=== PATIENT | male | born 2000 | race Asian ===

== ENCOUNTER 2023-03-12 10:23 | Outpatient (AMB) | payer OTHER, SELFPAY ==
[2023-03-12 10:29] VITALS: BP 124/84; PULSE 86; O2SAT 97; BMI 37.0
--- NOTE | 2023-03-12 10:29 | MHC.PC.OV ---
Vital Signs 03/12/23 10:29 Height 5 ft 9.5 in Weight 254 lb 8 oz BMI 37.0 BP 124/84 Blood Pressure Location Lt brachial Position Sitting Pulse 86 Pulse Source Pulse Oximeter Pulse Oximetry (%) 97 Oxygen Delivery Method Room Air Intake Visit Reasons: Physical exam Allergies No Known Allergies [No Known Allergies*] Allergy (Verified 07/26/21 13:22) Medication List - Last Reconciled 03/12/23 by Angeles Wei MD No Known Home Meds Tobacco use date assessed: 07/26/21 HPI Physical exam HPI Details Patient is 22-year-old gentleman came in today for physical examination Patient says that sometimes at night he wakes up coughing feel as if has some chest congestion But he is fine all day Patient says that the symptoms are improving he does not want any medication There is no fever chills chest pain no shortness a breath Patient is obese with BMI of 37.0 I would recommend to lose weight Reflux is a possibility, I have given him name of PriSoPostsec which is [id number] patient may take that as a trial Lab order placed to be done fasting He offer no other complaints today Flu vaccine declined [facility] Social History Housing: House Patient Tobacco Use Status: Never used Tobacco e-Cigarette/Vaping Use: Never Used service: No Current occupational status: unemployed Cognitive needs: No Hearing needs: No Vision needs: Yes Questionnaire PHQ-9 Over the last 2 weeks, how often have you been bothered by any of the following problems? 1. Little interest or pleasure in doing things: several days 2. Feeling down, depressed, or hopeless: several days 3. Trouble falling or staying asleep, or sleeping too much: not at all 4. Feeling tired or having little energy: several days 5. Poor appetite or overeating: not at all 6. Feeling bad about yourself - or that you are a failure or have let yourself or your family down: not at all 7. Trouble concentrating on things, such as reading the newspaper or watching television: several days 8. Moving or speaking so slowly that other people could have noticed. Or the opposite - being so fidgety or restless that you have been moving around a lot more than usual: not at all 9. Thoughts that you would be better off or of hurting yourself in some way: not at all Total score: 4 Depression Screening Interpretation: Negative Depression Screening Done: Yes 73512 - PHQ-9 Billing: Yes Source: Developed by Drs. Eduar Castillo, Marcelina Forbes, Piotr Waite and colleagues, with an educational tahir from [employer]. Thrive Questionnaire Date Thrive assessed: 03/12/23 I am a: Patient What is your living situation today?: I have a steady place to live Within the past 12 months, did the food you bought not last and you didn't have the money to get more?: Never true Within the past 12 months, did you worry whether your food would run out before you got money to buy more?: Never true Do you have trouble getting transportation to medical appointments?: No Do you have trouble paying your heating and electricity bill?: No Do you have trouble taking care of your child, family member or friend?: No Do you have trouble with day-to-day activities such as bathing, preparing meals, shopping, managing finances, etc.?: No Are you currently unemployed and looking for a job?: Yes Are you interested in more education?: Yes Please select the resources that you would like help with: None Currently or been in a relationship where the following occur: no concerns reported THRIVE Score: 0 AUDIT C Alcohol Use Questionnaire (AUDIT-C) 1. How often do you have a drink containing alcohol?: Never 3. How often do you have six or more drinks on one occasion?: Never Total Score: 0 Score Reviewed/Action Taken: Yes CORY-7 AMB Questionnaire CORY-7 Date CORY - 7 assessed: 03/12/23 Feeling nervous, anxious, or on edge: 2 = More than half the days Not being able to stop or control worryin = More than half the days Worrying too much about different things: 3 = Nearly every day Trouble relaxin = Several days Being so restless that it is hard to sit still: 2 = More than half the days Becoming easily annoyed or irritable: 2 = More than half the days Feeling afraid as if something awful might happen: 1 = Several days Total CORY-7 score (0-4 normal; 5-9 mild; 10-14 moderate; 15-21 severe): 13 Source: Developed by Drs. Eduar Castillo, Marcelina Forbes, Piotr Waite and colleagues, with an educational tahir from [employer]. CORY-7 Assessment Billing CORY-7 Assessment Tool: CORY-7 Assessment 61327 Review of Systems Const Denies chills, Denies fever(s) and Denies headache(s) Eyes Denies blurry vision ENT Denies headache(s), Denies nasal discharge, Denies nasal obstruction, Denies odynophagia and Denies sinus pain Card Denies chest pain at rest and Denies chest pain with activity Resp Denies hemoptysis GI Denies diarrhea, Denies odynophagia, Denies vomiting and Denies hematemesis Reports as per HPI Musc Denies abnormal gait Skin/Breast Reports as per HPI Neuro Denies Neuro-related abnormal movements, Denies Abnormal speech present, Denies abnormal gait, Denies headache(s) and Denies Sensory deficit (Neuro) Psych Denies mood swings and Denies paranoia Endo Reports as per HPI Quan/Lymph Reports as per HPI Aller/Immun Reports as per HPI Physical exam (Primary Care) Vital Signs: Last Vital Signs Pulse 86 03/12/23 10:29 BP 124/84 03/12/23 10:29 Pulse Ox 97 03/12/23 10:29 Oxygen Delivery Method Room Air 03/12/23 10:29 BMI result Body Mass Index 37.0 Tobacco/Smoking Status: Tobacco use Status Tobacco use date assessed 07/26/21 03/12/23 10:30 Patient Tobacco Use Status Never used Tobacco 03/12/23 10:30 e-Cigarette/Vaping Use Never Used 03/12/23 10:30 PHQ-9: PHQ-9 Score PHQ-9: Total score 4 03/12/23 10:55 Depression Screening Interpretation: Negative Thrive Assessment: Date of Thrive Assessment Date Thrive assessed 03/12/23 03/12/23 10:55 Currently or been in a relationship where the following occur: no concerns reported Const General: cooperative, comfortable and no acute distress Orientation/consciousness: patient oriented x3 HENMT Head: Yes normocephalic and Yes atraumatic Eyes General: appearance normal, both eyes and all related structures Pupils: Equal, round and reactive pupils present EOM: EOMs intact bilaterally Neck Neck: Yes supple and No lymphadenopathy Thyroid: Thyroid normal Lymphatic: no lymphadenopathy noted Resp Effort & Inspection: normal respiratory effort and able to speak in complete sentences Auscultation: clear to auscultation bilaterally Cardio Heart sounds: S1 normal heart sound present and S2 normal heart sound present GI Palpation (GI): Soft to palpation and nontender Auscultation: normal bowel sounds General: Yes no CVA tenderness Back/Spine/Pelvis Back: no CVA tenderness Skin General skin exam: elasticity normal and turgor normal Neuro General: patient oriented x3 and gait normal Cranial nerves: Yes Equal, round and reactive pupils present Speech: No Abnormal speech present Sensory Exam: No Sensory deficit (Neuro) Coordination: tandem gait normal and Romberg test negative Extrem General: Yes normal exam except as noted and No edema Assessment and Plan Assessment & Plan (1) Encounter for general adult medical examination with abnormal findings: Code(s): Z00.01 - Encounter for general adult medical examination with abnormal findings (2) Obesity due to excess calories: Code(s): E66.09 - Other obesity due to excess calories Qualifiers: Body mass index: BMI 37.0-37.9 Obesity classification: adult class 2 (BMI 35 - 39.9) Serious obesity comorbidity presence: without serious comorbidity (3) OCD (obsessive compulsive disorder): Code(s): F42.9 - Obsessive-compulsive disorder, unspecified Qualifiers: Obsessive-compulsive disorder type: unspecified (4) Xerosis of skin: Code(s): L85.3 - Xerosis cutis Plan Patient is 22-year-old gentleman came in today for physical examination Patient says that sometimes at night he wakes up coughing feel as if has some chest congestion But he is fine all day Patient says that the symptoms are improving he does not want any medication There is no fever chills chest pain no shortness a breath Patient is obese with BMI of 37.0 I would recommend to lose weight Reflux is a possibility, I have given him name of Prilosec which is [id number] patient may take that as a trial Lab order placed to be done fasting He offer no other complaints today Flu vaccine declined Patient has a very dry skin on his hands, we talked about skin care today It is okay to use Rosie well after washing hands, patient does have OCD Orders: Orders Complete Blood Count Auto Diff Today E66.09 - Other obesity due to excess calories, F42.9 - Obsessive-compulsive disorder, unspecified, L70.9 - Acne, unspecified, Z00.01 - Encounter for general adult medical examination with abnormal findings TSH reflex Free T4 Today E66.09 - Other obesity due to excess calories, F42.9 - Obsessive-compulsive disorder, unspecified, L70.9 - Acne, unspecified, Z00.01 - Encounter for general adult medical examination with abnormal findings Comprehensive [place]. Panel Fast Today E66.09 - Other obesity due to excess calories, F42.9 - Obsessive-compulsive disorder, unspecified, L70.9 - Acne, unspecified, Z00.01 - Encounter for general adult medical examination with abnormal findings Lipid Panel Today E66.09 - Other obesity due to excess calories, F42.9 - Obsessive-compulsive disorder, unspecified, L70.9 - Acne, unspecified, Z00.01 - Encounter for general adult medical examination with abnormal findings Coding Level of Care Code Est Pt Prev Care 18-39y(31258) Diagnoses Encounter for general adult medical examination with abnormal findings Z00.01 Obesity due to excess calories E66.09 Body mass index: BMI 37.0-37.9 Obesity classification: adult class 2 (BMI 35 - 39.9) Serious obesity comorbidity presence: without serious comorbidity OCD (obsessive compulsive disorder) F42.9 Obsessive-compulsive disorder type: unspecified Xerosis of skin L85.3 Additional Codes CORY-7 Assessment Billing - CORY-7 Assessment Tool: CORY-7 Assessment [id number] ([id number])
== END 2023-03-12 10:55 | disposition home or self-care (01) ==
PROVIDERS: PCP Internal Medicine; Visit Provider Internal Medicine
DX: Z00.00 Encounter for general adult medical examination without abnormal findings (principal); E66.09 Other obesity due to excess calories; Z68.37 Body mass index [BMI] 37.0-37.9, adult; F42.9 Obsessive-compulsive disorder, unspecified; L85.3 Xerosis cutis; L70.9 Acne, unspecified
CPT/HCPCS: 99395

== ENCOUNTER 2023-03-12 10:56 | Outpatient (REF) | payer OTHER, SELFPAY ==
[2023-03-12 13:29] LABS: MANUAL DIFF FLAG NO
[2023-03-12 13:34] LABS: Basophils Percent Auto 0.5 % (0-2); Eosinophils Absolute Auto 0.1 X10*3/uL (0.0-0.4); Hematocrit 50.1 % (42.0-52.0); Hemoglobin 16.8 g/dl (14.0-18.0); Imm Gran Abs Auto 0.01 X10*3/uL (0.00-0.03); Imm Gran Pct Auto 0.2 % (0.0-0.4); Lymphocytes Absolute Auto 2.3 X10*3/uL (1.2-4.9); Lymphocytes Percent Auto 35.8 % (20-40); Mean Corpuscular HGB Conc 33.5 g/dl (31.0-36.0); Mean Corpuscular Hemoglobin 29.4 pg (27.0-33.0); Mean Corpuscular Volume 87.6 fL (80.0-98.0); Mean Platelet Volume 10.8 fL (9.4-12.4); Monocytes Absolute Auto 0.5 X10*3/uL (0.1-1.2); Neutrophils Absolute Auto 3.5 x10*3/uL (2.0-8.3); Neutrophils Percent Auto 54.5 % (45-73); Platelet Count 307 X10*3/uL (160-400); Red Blood Count 5.72 X10*6/uL (4.60-5.80); Red Cell Distribution Width 12.6 % (11.0-16.0); White Blood Count 6.4 X10*3/uL (4.8-10.8)
[2023-03-12 15:07] LABS: Alanine Aminotransferase 127 U/L (0-40); Albumin Level 4.5 g/dL (3.5-5.0); Alkaline Phosphatase 57 U/L (39-117); Anion Gap 12 (12-20); Aspartate Amino Transferase 39 U/L (5-37); Bilirubin Total 0.6 mg/dL (0.0-1.0); Blood Urea Nitrogen 13 mg/dL (9-16); Calcium 9.5 mg/dL (8.4-10.2); Carbon Dioxide 26 mmol/L (22-29); Chloride 107 mmol/L (96-108); Cholesterol 157 mg/dL (<200); Estimated Glomerular Filt Rate > 60; Glucose Fasting 92 mg/dL (60-99); HDL Cholesterol 45 mg/dL (>40); LDL Cholesterol Calculated 94 mg/dL (<100); Potassium 3.8 mmol/L (3.3-5.1); Sodium 141 mmol/L (135-145); TSH reflex Free T4 1.59 uIU/mL (0.32-4.0); Total Protein 7.3 g/dL (6.5-8.0); Triglycerides 91 mg/dL (<150)
== END 2023-03-12 10:57 | disposition home or self-care (01) ==
LOC: HO.HMGCLDS 10:56
PROVIDERS: PCP Internal Medicine; Visit Provider Internal Medicine
DX: Z00.01 Encounter for general adult medical examination with abnormal findings (principal); E66.09 Other obesity due to excess calories; L70.9 Acne, unspecified; F42.9 Obsessive-compulsive disorder, unspecified
CPT/HCPCS: 36415; 80053; 80061; 84443; 85025

== ENCOUNTER 2023-04-09 12:59 | Outpatient (REF) | payer OTHER, SELFPAY ==
[2023-04-09 16:33] LABS: Alanine Aminotransferase 150 U/L (0-40); Albumin Level 4.5 g/dL (3.5-5.0); Alkaline Phosphatase 60 U/L (39-117); Aspartate Amino Transferase 48 U/L (5-37); Bilirubin Direct 0.3 mg/dL (0.0-0.5); Bilirubin Total 0.8 mg/dL (0.0-1.0); Total Protein 7.3 g/dL (6.5-8.0)
== END 2023-04-09 13:00 | disposition home or self-care (01) ==
LOC: HO.HMGCLDS 12:59
PROVIDERS: PCP Internal Medicine; Visit Provider Internal Medicine
DX: R79.89 Other specified abnormal findings of blood chemistry (principal)
CPT/HCPCS: 36415; 80076

== ENCOUNTER 2023-05-22 11:39 | Outpatient (AMB) | payer OTHER, SELFPAY ==
[2023-05-22 11:44] VITALS: BP 110/80; PULSE 79; TEMP 36.1; O2SAT 96; BMI 37.7
--- NOTE | 2023-05-22 11:44 | AM.OFFWIN_ITS ---
Intake Vital Signs 05/22/23 11:44 Height 5 ft 9.5 in Weight 259 lb BMI 37.7 BP 110/80 Blood Pressure Location Lt brachial Position Sitting Pulse 79 Pulse Source Pulse Oximeter Temp 97.0 F Temp Source Temporal Artery Scan Pulse Oximetry (%) 96 Oxygen Delivery Method Room Air Intake Visit Reasons: EP ?Ear infection Intake Note: pt ishere today for ear infection started 1 week ago Patient Tobacco Use Status: Never used Tobacco Allergies No Known Allergies [No Known Allergies*] Allergy (Verified 05/22/23 11:47) Do you need a note to return to daycare/school/sports/work: No HPI EP ?Ear infection HPI Details This is a 22 year old male patient who presents today with left ear pain for the past week. He denies any other URI symptoms. Reports one day he felt feverish, however no fever since then. [facility] [place] Social History Housing: House Patient Tobacco Use Status: Never used Tobacco e-Cigarette/Vaping Use: Never Used service: No Current occupational status: unemployed Cognitive needs: No Hearing needs: No Vision needs: Yes Review of Systems Const All systems reviewed & are unremarkable except as noted in HPI and below Physical Exam Vital Signs: Last Vital Signs Temp 97.0 F 05/22/23 11:44 Pulse 79 05/22/23 11:44 BP 110/80 05/22/23 11:44 Pulse Ox 96 05/22/23 11:44 Oxygen Delivery Method Room Air 05/22/23 11:44 BMI result Body Mass Index 37.7 Const General: cooperative, healthy appearing, comfortable and no acute distress HEENT Head: Yes normal to inspection Ears: hearing grossly normal bilaterally, external ears normal, TM abnormal (left TM erythematous, purulent effusion) and unable to visualize TM (cerumen impaction) on the right General nose exam: Normal external nose present Throat: Yes posterior oropharynx normal Resp Effort & Inspection: normal respiratory effort Auscultation: clear to auscultation bilaterally Cardio Rate: regular rate Rhythm: regular rhythm Skin General skin exam: no rashes or lesions noted Psych Appearance: grossly normal Mental Status: mental status grossly normal Speech and movement: Normal speech and movement present Office Procedures Cerumen Removal From which ear canal was the cerumen removed: right Removal: irrigation and cerumen loop/spoon Notes: patient tolerated procedure well, no complications and ear canal clear [id number] Wax Removal by Spoon/Curette Assessment & Plan Assessment & Plan (1) Left otitis media with effusion: Code(s): H65.92 - Unspecified nonsuppurative otitis media, left ear Plan: Augmentin BID 7 days due to left OM. Reviewed indications, use, possible side effects of medication. He can take Tylenol as needed for pain/fever. If he does not improve with treatment he should return to the office for further evaluation. He verbalizes understanding and agrees to plan. (2) Impacted cerumen, right ear: Code(s): H61.21 - Impacted cerumen, right ear Plan: Irrigation of right ear performed with good effect. Large amount of cerumen removed and ear canal now clear. Advised Debrox drops otc as needed for wax buildup. Medications: New amoxicillin-pot clavulanate 875-125 mg 1 tab PO BID 7 days 14 tabs 0RF H65.92 - Unspecified nonsuppurative otitis media, left ear Coding Level of Care Code Est Pt Level 4 (32186) Diagnoses Left otitis media with effusion H65.92 Impacted cerumen, right ear H61.21 CPT Codes Office Procedure - CPT: 27151-Zai Wax Removal by Spoon/Curette ([id number])
== END 2023-05-22 12:22 | disposition home or self-care (01) ==
PROVIDERS: PCP Internal Medicine; Visit Provider Nurse Practitioner Family
DX: H65.92 Unspecified nonsuppurative otitis media, left ear (principal); H61.21 Impacted cerumen, right ear
CPT/HCPCS: 69210; 99214

== ENCOUNTER 2024-03-17 11:00 | Outpatient (REF) | payer OTHER, SELFPAY ==
--- OUTSIDE RECORDS SUMMARY | 2024-03-17 12:51 | XMS_ITS | Clinical Summary ---
Author Organization [facility] Address [address] [place] [address] Phone Care Team Providers Care Sand Buffer Name Role Phone Eduar Churchill Primary Care Provider [phone] Immunizations Name Administration Dates Next Due DTaP 5 11/23/2003, 2,06/17/2000,03/11/2000, 0 Hep B, ped/adol 05/21/2000,01/30/2000,1999 Hib (PRP-T) 06/17/2000,02/07/2000 IPV 11/23/2003,01/27/2001,03/11/2000 ,01/03/2000 MMR 11/23/2003,11/25/2000 Pneumococcal Conjugate 01/27/2001,09/02/2000,08/2000 Varicella 11/25/2000 Family History Relation Name Status Comments Father Alive Father: Alive a nd well Mother Alive Mother: Alive a nd well Social History Tobacco Use Types Packs/Day Years Used Date Smoking Tobacco: Never Assessed Sex and Gender Information Value Date Recorded Sex Assigned at Not on file Legal Sex Male 4:17 PM EDT Gender Identity Not on file Sexual Orientation Not on file Plan of Treatment Health Maintenance Due Date Last Done Comments Varicella Vaccines (2 of 2 - 2-dose childhood series) 12/21/2003 11/25/2000 DTaP,Tdap,and Td Vaccines (6 - Tdap) 11/20/2010 11/23/2003, 04/28/2001, 06/17/2000, Additional history exists HPV Vaccines (1 - Male 3-dose series) 11/20/2014 Influenza Vaccines (#1) 2023 COVID-19 Vaccine ( - season) 2023 Hepatitis B Vaccines Completed 05/21/2000, 01/30/2000, 1999 HIB Vaccines Aged Out 06/17/2000, 02/07/2000 No lo nger eligible based on patient's age to complete this topic Pneumococcal Vaccine Completed 01/27/2001, 09/02/2000, 06/24/2000 IPV Vaccines Completed 11/23/2003, 01/18, 03/11/2000, Additional history exists MMR Vaccines Completed 11/23/2003, 11/25/2000 Hepatitis A Vaccines Aged Out No long er eligible based on patient's age to complete this topic Men B Vaccine Aged Out No longer elig ible based on patient's age to complete this topic Meningococcal Vaccine Aged Out No tae mony eligible based on patient's age to complete this topic Care Teams Sand Buffer Relationship Specialty Start Date End Date Eduar Churchill [address] [place] [id number] PCP - General 09/28/16
--- OUTSIDE RECORDS SUMMARY | 2024-03-17 12:51 | XMS_ITS | Encounter Summary ---
Author Organization [facility] Address [address] [place] [phone] Phone Care Team Providers Care Retort Operator Name Role Phone Eduar Churchill Primary Care Provider [phone] Encounter Details Date Type Department Care Team (Late st Contact Info) Description 10/04/2016 Conversion Encounter [facility] [address] [place] [address] Social History Tobacco Use Types Packs/Day Years Used Date Smoking Tobacco: Never Assessed Sex and Gender Information Value Date Recorded Sex Assigned at Not on file Legal Sex Male 4:17 PM EDT Gender Identity Not on file Sexual Orientation Not on file documented as of this encounter Plan of Treatment Not on file documented as of this encounter Visit Diagnoses Not on filedocumented in this encounter Care Teams Retort Operator Relationship Specialty Start Date End Date Eduar Churchill [address] [place] [address] PCP - General 09/28/16 documented as of this encounter
[2024-03-17 13:41] LABS: MANUAL DIFF FLAG NO
[2024-03-17 13:43] LABS: Basophils Percent Auto 0.6 % (0-2); Eosinophils Absolute Auto 0.1 X10*3/uL (0.0-0.4); Eosinophils Percent Auto 1.5 % (0-4); Hemoglobin 17.5 g/dl (14.0-18.0); Imm Gran Abs Auto 0.01 X10*3/uL (0.00-0.03); Imm Gran Pct Auto 0.1 % (0.0-0.4); Lymphocytes Absolute Auto 2.6 X10*3/uL (1.2-4.9); Lymphocytes Percent Auto 35.7 % (20-40); Mean Corpuscular HGB Conc 33.7 g/dl (31.0-36.0); Mean Corpuscular Hemoglobin 29.6 pg (27.0-33.0); Mean Platelet Volume 10.1 fL (9.4-12.4); Monocytes Absolute Auto 0.5 X10*3/uL (0.1-1.2); Monocytes Percent Auto 6.3 % (2-11); Neutrophils Absolute Auto 4.1 x10*3/uL (2.0-8.3); Neutrophils Percent Auto 55.8 % (45-73); Platelet Count 305 X10*3/uL (160-400); Red Blood Count 5.91 X10*6/uL (4.60-5.80); Red Cell Distribution Width 12.5 % (11.0-16.0); White Blood Count 7.3 X10*3/uL (4.8-10.8)
[2024-03-17 14:24] LABS: Alanine Aminotransferase 133 U/L (0-40); Albumin Level 4.6 g/dL (3.5-5.0); Alkaline Phosphatase 57 U/L (39-117); Anion Gap 14 (12-20); Aspartate Amino Transferase 44 U/L (5-37); Bilirubin Total 0.9 mg/dL (0.0-1.0); Blood Urea Nitrogen 12 mg/dL (9-16); Calcium 9.1 mg/dL (8.4-10.2); Carbon Dioxide 25 mmol/L (22-29); Chloride 107 mmol/L (96-108); Cholesterol 170 mg/dL (<200); Estimated Glomerular Filt Rate > 60; Glucose Random 89 mg/dL (60-115); HDL Cholesterol 47 mg/dL (>40); LDL Cholesterol Calculated 101 mg/dL (<100); Potassium 3.9 mmol/L (3.3-5.1); Sodium 142 mmol/L (135-145); Total Protein 7.7 g/dL (6.5-8.0); Triglycerides 110 mg/dL (<150)
[2024-03-17 14:28] LABS: HBS Num1 3.55 mIU/mL (0-7.99); HBc Num1 0.22 S/CO (0.00-0.79); HBsAGNum1 0.37 S/CO (0.00-0.99); Hepatitis A Antibody IgM 0.13 Index (0-0.79); Hepatitis B Core Antibody Nonreactive (Nonreactive); Hepatitis B Surface Antigen Negative (Negative); ~HepC Num1 0.12 S/CO (0.00-0.79); ~Hepatitis A Antibody IgM Nonreactive (Nonreactive); ~Hepatitis B Surface Antibody NONREACTIVE (Nonreactive); ~Hepatitis C Antibody Nonreactive (Nonreactive)
[2024-03-17 14:29] LABS: TSH reflex Free T4 3.13 uIU/mL (0.32-4.0)
[2024-03-21 17:38] LABS: Vitamin D 25-OH, D2 <4 ng/mL; Vitamin D 25-OH, D3 18 ng/mL; Vitamin D 25-OH, Total 18 ng/mL (30-100)
== END 2024-03-17 11:01 | disposition home or self-care (01) ==
LOC: HO.HMGCLDS 11:00
PROVIDERS: PCP Internal Medicine; Visit Provider Internal Medicine
DX: Z00.01 Encounter for general adult medical examination with abnormal findings (principal); E66.09 Other obesity due to excess calories; Z68.37 Body mass index [BMI] 37.0-37.9, adult; R79.89 Other specified abnormal findings of blood chemistry
CPT/HCPCS: 36415; 80053; 80061; 82306; 84443; 85025; 86704; 86706; 86709; 86803; 87340; 96127; 99395

== ENCOUNTER 2024-04-13 10:21 | Outpatient (REF) | payer OTHER, SELFPAY ==
--- NOTE | ~2024-04-13 | US_ITS ---
EXAMINATION: US ABDOMEN LIMITED HISTORY: R79.89 - abnormal LFTS TECHNIQUE: Real-time grayscale ultrasound imaging of the right upper quadrant was performed and images were reviewed. COMPARISON: There are no prior studies for comparison. FINDINGS: Liver: The right lobe of the liver measures 13.1 cm in size. The left lobe of the liver measures 11.0 cm in size. The liver demonstrates increased echotexture, consistent with steatosis. No focal mass or intrahepatic biliary ductal dilatation is identified. There is normal hepatopedal flow in the portal vein. Gallbladder and biliary tree: The gallbladder is unremarkable, without evidence of calculi, wall thickening, or pericholecystic fluid. There is no sonographic [place] sign. The common bile duct is normal in caliber measuring 4 mm. Right Kidney: The right kidney measures 11.2 cm in length. The right kidney is unremarkable, without evidence of masses, hydronephrosis, or calculi. Pancreas: The pancreas is obscured by bowel gas. Abdominal aorta and inferior vena cava: The visualized portions of the abdominal aorta and inferior vena cava are normal in caliber. There is no free fluid in the right upper quadrant. US/US abdomen limited IMPRESSION: Hepatic steatosis. Electronically signed by: Eduar Ruiz MD 04/13/2024 02:08 PM SUJIT
--- OUTSIDE RECORDS SUMMARY | 2024-04-13 11:35 | XMS_ITS | Encounter Summary ---
Author Organization [facility] Address [address] [place] [phone] Phone Care Team Providers Care Service Cleaner Name Role Phone Eduar Churchill Primary Care Provider [phone] Encounter Details Date Type Department Care Team (Late st Contact Info) Description 10/04/2016 Conversion Encounter [facility] [address] [place] [address] Social History Tobacco Use Types Packs/Day Years [...] on filedocumented in this encounter Care Teams Service Cleaner Relationship Specialty Start Date End Date Eduar Churchill [address] [place] [address] PCP - General 09/28/16 documented as of this encounter
--- OUTSIDE RECORDS SUMMARY | 2024-04-13 11:35 | XMS_ITS | Clinical Summary ---
Author Organization [facility] Address [address] [place] [phone] Phone Care Team Providers Care Hopper Filler Name Role Phone Churchill Eduar Indira Primary Care Provider [phone] Immunizations Immunization Administration Dates Next Due DTaP 5 11/23/2003, [...] age to complete this topic Care Teams Hopper Filler Relationship Specialty Start Date End Date Eduar Churchill [address] [place] [phone] PCP - General 09/28/16
== END 2024-04-13 10:22 | disposition home or self-care (01) ==
LOC: HO.HMGCX 10:21
PROVIDERS: PCP Internal Medicine; Visit Provider Internal Medicine
DX: R79.89 Other specified abnormal findings of blood chemistry (principal)
CPT/HCPCS: 76705

== ENCOUNTER → 2024-04-13 10:23 | Outpatient (BNV) | payer OTHER, SELFPAY | PROVIDERS: PCP Internal Medicine; Visit Provider Radiology Diagnostic Radiology | DX: R74.01 Elevation of levels of liver transaminase levels (principal) | CPT/HCPCS: 76705 ==